=== PATIENT | female | born 2000 | race Caucasian/White ===

== ENCOUNTER 2023-10-01 20:23 | Emergency (ER) | payer OTHER ==
[2023-10-01 20:30] VITALS: BP 117/76; PULSE 88; RESP 20; TEMP 98.2; BMI 25.6
[2023-10-01 22:02] LABS: PH,URINE 7.5 (5.0-8.0); URINE APPEARANCE CLEAR; URINE BILIRUBIN NEGATIVE (NEGATIVE); URINE COLOR YELLOW; URINE GLUCOSE (UA) NEGATIVE (NEGATIVE); URINE KETONE NEGATIVE (NEGATIVE); URINE LEUK ESTERASE NEGATIVE (NEGATIVE); URINE NITRITE NEGATIVE (NEGATIVE); URINE PROTEIN NEGATIVE (NEGATIVE)
[2023-10-01 22:20] LABS: HCG,QUALITATIVE URINE Negative
[2023-10-02] MEDS ORDERED: SODIUM CHLORIDE 0.9% 500 ML INFUS.BAG IV ONE (00:54)
[2023-10-02] MEDS ORDERED: DEXAMETHASONE SOD PHOSPHATE 10 MG/1 ML VIAL IVPUSH ONE (00:54)
[2023-10-02] MEDS ORDERED: DEXAMETHASONE SOD PHOSPHATE 10 MG/1 ML VIAL ONE (01:14)
[2023-10-02 01:18] LABS: BASO % 0.3 % (0-2.0); EOS % 0.9 % (0-4.5); HEMATOCRIT 40.6 % (32.4-45.2); HEMOGLOBIN 13.4 GM/dL (10.7-15.3); LYMPH % 40.4 % (8-40); MCH 28.4 pg (25.7-33.7); MCHC 32.9 g/dl (32.0-36.0); MEAN CELL VOLUME 86.5 fl (80-96); MEAN PLT VOLUME 8.3 fl (7.5-11.1); MONO % 7.4 % (3.8-10.2); PLATELET COUNT 377 10^3/uL (134-434); RDW 13.2 % (11.6-15.6); WHITE BLOOD COUNT 7.8 K/mm3 (4.0-10.0)
[2023-10-02 01:33] LABS: POTASSIUM 3.8 mmol/L (3.5-5.1)
[2023-10-02 01:35] LABS: CALCIUM 8.7 mg/dL (8.5-10.1)
[2023-10-02 01:36] LABS: ALBUMIN 3.8 g/dl (3.4-5.0); BLOOD UREA NITROGEN 10.1 mg/dL (7-18)
[2023-10-02 01:39] LABS: CREATININE 0.7 mg/dL (0.55-1.3)
[2023-10-02 01:40] LABS: BILIRUBIN,TOTAL 0.3 mg/dL (0.2-1)
== END 2023-10-02 05:58 | disposition home or self-care (01) ==
LOC: JER 20:23 → JERFT 20:23 → JER 10-02 05:58
PROC: 3E033GC Introduction of Other Therapeutic Substance into Peripheral Vein, Percutaneous Approach (ICD-10-PCS; principal; 2023-10-02)
PROC: 3E033GC Introduction of Other Therapeutic Substance into Peripheral Vein, Percutaneous Approach (ICD-10-PCS; 2023-10-02)
DX: R10.31 Right lower quadrant pain (principal); R35.0 Frequency of micturition; R10.2 Pelvic and perineal pain; N83.201 Unspecified ovarian cyst, right side; R11.0 Nausea; R42 Dizziness and giddiness
CPT/HCPCS: 36415; 74177-TC; 76830-TC; 80053; 81003; 84703; 85025; 87086; 99285-25; J1100